=== PATIENT | female | born 1995 ===

== ENCOUNTER 2018-06-13 14:50 | Inpatient (IN) | payer OTHER ==
[~2018-06-13] VITALS: Ht 162.6 cm; Wt 3.6 kg
[2018-07-01] MEDS ORDERED: PRENATAL TABLE1 EACH PO (04:09)
== END 2018-07-04 12:36 | disposition home or self-care (01) | DRG 766 ==
LOC: LDR 07-01 03:42 → OB/GYN 07-01 03:42
PROVIDERS: Specialist
PROC: 4A1HXCZ Monitoring of Products of Conception, Cardiac Rate, External Approach (ICD-10-PCS; 2018-07-01)
PROC: 4A033R1 Measurement of Arterial Saturation, Peripheral, Percutaneous Approach (ICD-10-PCS; 2018-07-01)
PROC: 10D00Z1 Extraction of Products of Conception, Low, Open Approach (ICD-10-PCS; principal; 2018-07-01 16:15)
DX: O33.5XX0 Maternal care for disproportion due to unusually large fetus, not applicable or unspecified (principal); Z3A.39 39 weeks gestation of pregnancy; Z37.0 Single live birth

== ENCOUNTER 2018-06-27 11:10 | Outpatient (CLI) | payer OTHER | END 2018-06-27 13:18 | disposition home or self-care (01) | LOC: OBS/DEL 11:10 | DX: O47.1 False labor at or after 37 completed weeks of gestation (principal); Z34.83 Encounter for supervision of other normal pregnancy, third trimester ==